=== PATIENT | male | born 1995 | race Caucasian/White ===

== ENCOUNTER 2017-12-09 00:52 | Emergency (ER) | payer OTHER ==
[~2017-12-09] VITALS: Ht 165.1 cm; Wt 68.0 kg
--- NOTE | 2017-12-09 01:04 | NUR ---
PT TO ER BED 14. BIBRA FROM A BAR FOR ETOH. PT PLACED ON MACHINE CLEANER. PT VSS/NAD NOTED/RESP EVEN UNLABORED/SKIN WARM AND DRY/NO ACTIVE VOMITING NOTED AT THIS TIME/AFEBRILE/AOX4. AWAITING MD DAVISON.
--- NOTE | 2017-12-09 01:05 | NUR ---
LAB AT BEDSIDE FOR DRAW.
--- NOTE | 2017-12-09 01:13 | NUR ---
EMT AT BEDSIDE FOR EKG.
[2017-12-09] MEDS ORDERED: ONDANSETRON HCL/PF 4 MG/2 ML VIAL ONE (01:14)
[2017-12-09 01:23] LABS: BASOPHILS % (AUTO) 0.3 % (0.0-2.0); EOSINOPHILS % (AUTO) 1.2 % (0.0-6.0); HEMATOCRIT 43 % (39-51); HEMOGLOBIN 14.1 g/dL (13.5-17.5); LYMPHOCYTES # (AUTO) 1.8 /CMM (0.8-4.8); LYMPHOCYTES % (AUTO) 25.5 % (20.0-44.0); MEAN CORPUSCULAR HGB CONC 33 g/dl (31.0-36.0); MEAN CORPUSCULAR VOLUME 88 fL (80-96); MONOCYTES # (AUTO) 0.4 /CMM (0.1-1.30); MONOCYTES % (AUTO) 5.4 % (2.0-12.0); NEUTROPHILS # (AUTO) 4.7 /CMM (1.8-8.9); NEUTROPHILS % (AUTO) 67.6 % (43.0-81.0); PLATELET COUNT (AUTO) 225 /CMM (150-450); RED BLOOD CELL COUNT(AUTO) 4.85 MIL/uL (4.5-6.0); WHITE BLOOD COUNT (AUTO) 6.9 K/uL (4.3-11.0)
[2017-12-09] MEDS ORDERED: ONDANSETRON HCL/PF - ER 4 MG/2 ML VIAL IV ONE (01:30)
[2017-12-09] MEDS ORDERED: IV NS 0.9% 1,000 ML BAG IV ONE (01:30)
--- NOTE | 2017-12-09 01:30 | NUR ---
PT TO CT VIA STRETCHER. VSS.
[2017-12-09 01:35] LABS: CREATININE 0.7 mg/dL (0.6-1.3); POTASSIUM 3.7 mmol/L (3.5-5.1)
[2017-12-09 01:42] LABS: ALBUMIN 4.6 g/dL (3.4-5.0); SALICYLATE 1.4 mg/dL (2.8-20.0); TOTAL PROTEIN, SERUM 8.2 g/dL (6.4-8.2)
[2017-12-09 02:03] LABS: BILIRUBIN,DIRECT 0.1 mg/dL (0.0-0.2); BILIRUBIN,TOTAL 0.3 mg/dL (0.2-1.0)
--- NOTE | 2017-12-09 02:37 | NUR ---
IV removed. Catheter intact and site benign. Pressure and 4x4 applied to site. No bleeding noted. Patient is awake and alert to self, day, and place. Patient ambulatory with a steady gait. Patient discharged without aftercare instructions, patient nor parents wanted to wait. Patient discharged with parents home in stable condition.
[2017-12-09 02:39] VITALS: BP 126/74
== END 2017-12-09 02:40 | disposition home or self-care (01) ==
LOC: ER 00:53
DX: F10.221 Alcohol dependence with intoxication delirium (principal); Y90.7 Blood alcohol level of 200-239 mg/100 ml; R94.31 Abnormal electrocardiogram [ECG] [EKG]; R40.4 Transient alteration of awareness
CPT/HCPCS: 36415; 70450; 80048; 80076; 80329; 85025; 93005; 96361; 96374; 99285; A4606; G0480 ×2; J2405 ×2; J7030; Z7610